=== PATIENT | female | born 1985 | race Caucasian/White ===

== ENCOUNTER 2017-04-17 16:35 | Emergency (ER) | payer MEDICAID ==
[2017-04-17 19:36] LABS: BASOPHIL % 0.1 % (0-2); PLATELET COUNT 172 x10^3mcL (130-400); RED CELL DISTRIBUTION WIDTH 13.9 % (11.5-14.5)
[2017-04-17 19:41] LABS: CALCIUM 7.6 mg/dL (8.5-10.1); CARBON DIOXIDE 22.8 mmol/L (21-32); CHLORIDE SERUM 102 mmol/L (98-107); CREATININE SERUM 0.8 mg/dL (0.6-1.0); GFR1 > 60 mL/min; GLUCOSE SERUM 288 mg/dL (74-106); POTASSIUM SERUM 3.3 mmol/L (3.5-5.1); SODIUM SERUM 135 mmol/L (136-145)
[2017-04-17 19:53] LABS: ALKALINE PHOSPHATASE 64 U/L (46-116); ALT/SGPT 13 U/L (14-59); AST/SGOT 15 U/L (15-37); BILIRUBIN TOTAL 0.64 mg/dL (0.20-1.00); TOTAL PROTEIN, SERUM 7.4 g/dL (6.4-8.2)
[2017-04-17 19:54] LABS: ALBUMIN 3.2 g/dL (3.4-5.0)
[2017-04-17 20:01] LABS: microscopic required? YES
[2017-04-17 20:02] LABS: T3 TOTAL 0.63 ng/mL
[2017-04-17 20:02] LABS: urine erythrocyte TRACE (NEGATIVE)
[2017-04-17 20:23] LABS: FREE T4 1.21 ng/dL (0.76-1.46); T4(THYROXINE) 8.3 ug/dL (4.7-13.3)
[2017-04-17 20:24] LABS: CK-MB < 0.5 ng/mL (0-3.6); CREATINE KINASE 66 U/L (26-192)
[2017-04-17 21:16] VITALS: BP 100/66
[2017-04-18 10:25] LABS: ERYTHROCYTE SED RATE 30 mm/hr (0-20)
== END 2017-04-17 21:16 | disposition home or self-care (01) ==
LOC: ED 16:35
PROVIDERS: Specialist
DX: N39.0 Urinary tract infection, site not specified (principal)
CPT/HCPCS: 83880; 84439; J0696; J1885; J2405; J7042; Q0092

== ENCOUNTER 2018-03-07 17:44 | Emergency (ER) | payer MEDICAID ==
[~2018-03-07] VITALS: Ht 154.9 cm; Wt 71.3 kg
[2018-03-07 17:59] VITALS: Ht 154.9 cm; Wt 71.3 kg
[2018-03-07 19:08] LABS: microscopic required? NO
[2018-03-07 19:15] LABS: urine erythrocyte NEGATIVE (NEGATIVE)
[2018-03-07 19:53] LABS: BASOPHIL % 0.3 % (0-2); PLATELET COUNT 296 x10^3mcL (130-400); RED CELL DISTRIBUTION WIDTH 13.6 % (11.5-14.5)
[2018-03-07 21:50] LABS: CALCIUM 8.3 mg/dL (8.5-10.1); CARBON DIOXIDE 25.3 mmol/L (21-32); CHLORIDE SERUM 105 mmol/L (98-107); CREATININE SERUM 0.7 mg/dL (0.6-1.0); GFR1 > 60 mL/min; GLUCOSE SERUM 90 mg/dL (74-106); POTASSIUM SERUM 4.5 mmol/L (3.5-5.1); SODIUM SERUM 136 mmol/L (136-145)
[2018-03-07 21:55] LABS: ALKALINE PHOSPHATASE 71 U/L (46-116); ALT/SGPT 22 U/L (14-59); AST/SGOT 16 U/L (15-37); BILIRUBIN TOTAL 0.42 mg/dL (0.20-1.00); LIPASE 136 IU/L (73-393); TOTAL PROTEIN, SERUM 7.6 g/dL (6.4-8.2)
[2018-03-07 21:56] LABS: ALBUMIN 3.2 g/dL (3.4-5.0)
[2018-03-07 22:35] VITALS: BP 102/53
== END 2018-03-07 22:35 | disposition home or self-care (01) ==
LOC: ED 17:44
PROVIDERS: Emergency Medicine
DX: K80.80 Other cholelithiasis without obstruction (principal)
CPT/HCPCS: J1885; J2405; J7030; Q0092

== ENCOUNTER 2018-07-14 06:33 | Emergency (ER) | payer SELFPAY ==
[2018-07-14 08:55] VITALS: BP 112/83
== END 2018-07-14 08:55 | disposition home or self-care (01) ==
LOC: ED 06:33
DX: R51 Headache (principal)
CPT/HCPCS: J1885

== ENCOUNTER 2019-08-14 15:02 | Emergency (ER) | payer MEDICAID ==
[~2019-08-14] VITALS: Ht 154.9 cm; Wt 75.3 kg
[2019-08-14 16:00] VITALS: Ht 154.9 cm; Wt 75.3 kg
[2019-08-14 18:18] LABS: microscopic required? NO
[2019-08-14 18:28] LABS: BASOPHIL % 0.1 % (0-2); RED CELL DISTRIBUTION WIDTH 14.1 % (11.5-14.5)
[2019-08-14 18:29] LABS: UA SPECIFIC GRAVITY 1.025 (1.005-1.035); urine erythrocyte NEGATIVE (NEGATIVE)
[2019-08-14 18:36] LABS: PLATELET COUNT 443 x10^3mcL (130-400)
[2019-08-14 18:37] LABS: CARBON DIOXIDE 30.7 mmol/L (21-32); CHLORIDE SERUM 104 mmol/L (98-107); CREATININE SERUM 0.7 mg/dL (0.6-1.0); GFR1 > 60 mL/min; GLUCOSE SERUM 91 mg/dL (74-106); POTASSIUM SERUM 3.6 mmol/L (3.5-5.1); SODIUM SERUM 141 mmol/L (136-145)
[2019-08-14 18:42] LABS: ALBUMIN 4.1 g/dL (3.4-5.0); ALKALINE PHOSPHATASE 114 U/L (46-116); ALT/SGPT 105 U/L (14-59); AST/SGOT 180 U/L (15-37); BILIRUBIN TOTAL 0.31 mg/dL (0.20-1.00); CHOLESTEROL 181 mg/dL (<200); LIPASE 179 IU/L (73-393)
[2019-08-14 18:45] LABS: HDL CHOLESTEROL 28 mg/dL (40-60)
[2019-08-14 21:22] VITALS: BP 103/61
== END 2019-08-14 21:22 | disposition home or self-care (01) ==
LOC: ED 15:02
PROVIDERS: Emergency Medicine
DX: K80.50 Calculus of bile duct without cholangitis or cholecystitis without obstruction (principal); K80.20 Calculus of gallbladder without cholecystitis without obstruction; D72.829 Elevated white blood cell count, unspecified; R74.0 Nonspecific elevation of levels of transaminase and lactic acid dehydrogenase [LDH]
CPT/HCPCS: J1885; J7030; Q0092

== ENCOUNTER 2020-06-25 05:14 | Emergency (ER) | payer OTHER ==
[~2020-06-25] VITALS: Ht 152.4 cm; Wt 68.0 kg
[2020-06-25 05:17] VITALS: Ht 152.4 cm; Wt 68.0 kg
[2020-06-25 05:39] VITALS: BP 109/62
== END 2020-06-25 05:39 | disposition other institution (70) ==
LOC: ED 05:14
DX: Z02.89 Encounter for other administrative examinations (principal)